=== PATIENT | female | born 1985 | race Caucasian/White ===

== ENCOUNTER 2022-07-03 08:28 | Day surgery (SDC) | payer OTHER ==
[~2022-07-03] VITALS: Ht 177.8 cm; Wt 170.4 kg
[~2022-07-03 08:28] MED LIST: SODIUM CHLORIDE 0.9% 1,000 ML ONE
[2022-07-03] MEDS ORDERED: LIDOCAINE/PF 2% 5 ML VIAL IM ONE (08:29)
[2022-07-03] MEDS ORDERED: PROPOFOL 1% 20 ML VIAL IVP ONE (08:29)
[2022-07-03] MEDS ORDERED: SODIUM CHLORIDE 0.9% 1,000 ML IV ONE (09:00)
[2022-07-03 09:17] LABS: COVID AG,FIA SOURCE NASAL SWAB
[2022-07-03] MEDS ORDERED: LEVO25CA4 PO (09:17)
[2022-07-03] MEDS ORDERED: ACYC400T20 PO (09:17)
[2022-07-03] MEDS ORDERED: MIRT-92 PO (09:17)
[2022-07-03] MEDS ORDERED: BUPR-344 PO (09:17)
[2022-07-03] MEDS ORDERED: LEVO200T10 PO (09:17)
[2022-07-03] MEDS ORDERED: BUPR-49 PO (09:17)
[2022-07-03] MEDS ORDERED: PROP40TA7 PO (09:17)
[2022-07-03] MEDS ORDERED: VENL-68 PO (09:17)
[2022-07-03] MEDS ORDERED: VENL-67 PO (09:17)
== END 2022-07-03 11:15 | disposition home or self-care (01) ==
LOC: SURGERY 08:28
PROVIDERS: ATTEND Internal Medicine Gastroenterology
DX: K29.70 Gastritis, unspecified, without bleeding (principal); Z79.899 Other long term (current) drug therapy; E66.01 Morbid (severe) obesity due to excess calories; Z98.890 Other specified postprocedural states; Z20.822 Contact with and (suspected) exposure to COVID-19; F41.8 Other specified anxiety disorders
CPT/HCPCS: 43239; 87426; 84703; C1769; J7030; C9803; J2704; J3490